=== PATIENT | female | born 1965 | race Caucasian/White ===

== ENCOUNTER → 2023-05-06 | Outpatient (CLI) | payer OTHER ==
--- NOTE | 2023-05-07 08:32 | MM ---
Reason for Exam: Screening (asymptomatic). Last mammogram was performed 6 year(s) and 5 month(s) ago. Patient History: Menarche at age 12. First Full-Term at age 19. Hysterectomy at age 27. Postmenopausal. 1995, Excisional Biopsy on the Left side. Maternal aunt had breast cancer. Risk Values: Dulce 5 year model risk: 1.4%. NCI Lifetime model risk: 8.1%. Prior Study Comparison: 05/02/2004 Bilateral Diagnostic Mammogram, [facility]. 02/26/2006 Bilateral Diagnostic Mammogram, [facility]. 06/11/2007 Bilateral Diagnostic Mammogram, [facility]. 07/05/2013 Bilateral Screening Mammogram, [facility]. 07/12/2013 Left Diagnostic Mammogram, [facility]. 12/11/2016 Bilateral Screening Mammogram, [facility]. Tissue Density: The breast tissue is heterogeneously dense. This may lower the sensitivity of mammography. Findings: Analyzed By CAD. There is no suspicious group of microcalcifications or new suspicious mass. Benign-appearing calcifications right breast. Overall Assessment: Benign, BI-RAD 2 Management: Screening Mammogram of both breasts in [address] [facility] will attempt to contact patient to return for supplemental views and ultrasound if indicated. Patient should continue monthly self-breast exams. A clinical breast exam by your physician is recommended on an annual basis. This exam should not preclude additional follow-up of suspicious palpable abnormalities. Note on Dulce scores and lifetime risk: 1. A Dulce score greater than 3% is considered moderate risk. If this is the case, consider specialist referral to assess eligibility for a risk reducing agent. 2. If overall lifetime risk for the development of breast cancer is 20% or higher, the patient may qualify for future screening with alternating mammogram and breast MRI. Electronically signed and approved by: Jose D Suarez DO
== END | disposition home or self-care (01) ==
LOC: RADMAMWWP 07:35
PROVIDERS: ATTEND Family Medicine
DX: Z12.31 Encounter for screening mammogram for malignant neoplasm of breast (principal); Z78.0 Asymptomatic menopausal state; Z80.3 Family history of malignant neoplasm of breast
CPT/HCPCS: 77067